=== PATIENT | male | born 1985 ===

== ENCOUNTER 2023-08-30 12:15 | Emergency (ER) | payer OTHER ==
[~2023-08-30] VITALS: Ht 182.9 cm; Wt 90.0 kg
[2023-08-30 12:27] VITALS: O2SAT 97
[2023-08-30 13:59] LABS: HEMATOCRIT. 51.7 % (42.0-52.0); HEMOGLOBIN. 16.8 g/dL (14.0-18.0); MEAN CORPUSCULAR HEMOGLOBIN 26.2 pg (28.0-32.0); MEAN CORPUSCULAR HGB CONC 32.5 g/dL (31.0-37.0); MEAN CORPUSCULAR VOLUME 80.7 fL (80.0-94.0); MEAN PLATELET VOLUME 7.3 fl (7.4-10.4); PLATELET 317 x1000/uL (130-400); RED CELL DISTRIBUTION WIDTH 14.1 % (11.6-14.6); WHITE BLOOD COUNT 7.6 x1000/uL (4.5-11.0)
[2023-08-30 14:02] LABS: CHLORIDE 105 mEq/L (98-107); POTASSIUM 4.3 mEq/L (3.5-5.1); SODIUM 139 mEq/L (136-145)
[2023-08-30 14:03] LABS: CALCIUM 9.9 mg/dL (8.7-10.4); CARBON DIOXIDE 27 mEq/L (21-32)
[2023-08-30 14:04] LABS: DIFFERENTIAL COMMENT 1
[2023-08-30 14:08] LABS: GLUCOSE 82 mg/dL (70-105); UREA NITROGEN BLOOD 10 mg/dL (9-23)
[2023-08-30 14:10] LABS: ALANINE AMINOTRANSFERASE 29 IU/L (10-49); ALBUMIN 5.2 g/dL (3.2-4.8); ASPARTATE AMINOTRANSFERASE 24 IU/L (<34); BILIRUBIN DIRECT 0.3 mg/dL (<=3.0); BILIRUBIN TOTAL 0.7 mg/dL (0.1-1.0); PROTEIN TOTAL 7.8 g/dL (6.0-8.3)
[2023-08-30 15:09] LABS: PLATELET ESTIMATE NORMAL
[2023-08-30] MEDS ORDERED: IBUP-2029 MT (16:29)
[2023-08-30] MEDS ORDERED: DICY-18 MT (16:29)
[2023-08-30 16:40] VITALS: BP 136/82; PULSE 89; RESP 20; TEMP 98.2
[2023-08-30] MEDS ORDERED: FAMO-135 MT (16:40)
== END 2023-08-30 17:08 | disposition home or self-care (01) ==
LOC: ER 12:39
DX: R10.31 Right lower quadrant pain (principal)
CPT/HCPCS: 36415; 71045; 76705; 80048; 80076; 85025; 93005; 99285